=== PATIENT | female | born 1995 | race Caucasian/White ===

== ENCOUNTER 2016-08-05 09:38 | Emergency (ER) | payer SELFPAY ==
[~2016-08-05] VITALS: Ht 165.1 cm; Wt 56.5 kg
[2016-08-05 09:41] VITALS: BP 127/54; PULSE 74; RESP 15; TEMP 98.2; O2SAT 100
--- NOTE | 2016-08-05 09:49 | PD ---
HPI . patient thinks she is going to catch pink eye Chief Complaint: Eye Problems/Injury Time Seen by Provider: 09:49 Travel History International Travel<30 days: No Contact w/Intl Traveler<30days: No Traveled to known affect area: No History of Present Illness HPI 21-year-old female here to tell me that she thinks she is going to catch pinkeye. Her roommate is being seen and has pinkeye and patient would like to be treated prophylactically. She has no signs or symptoms. She denies any visual changes, drainage or eye redness. PFSH Past Medical History ?: Not Social History Alcohol Use: Yes Tobacco Use: Yes Allergies-Medications (Allergen,Severity, Reaction): Coded Allergies: No Known Allergies (Unverified , 08/05/16) Review of Systems General / Constitutional: No: Fever Eyes: No: Redness, Visual changes HENT: No: Headaches Cardiovascular: No: Chest Pain or Discomfort Respiratory: No: Shortness of Breath Gastrointestinal: No: Abdominal Pain Genitourinary: No: Dysuria Musculoskeletal: No: Pain Skin: No Rash Neurologic: No: Weakness Psychiatric: No: Depression Endocrine: No: Polydipsia Hematologic/Lymphatic: No: Easy Bruising Physical Exam Narrative GENERAL: AAO x 3, no acute distress, Well-nourished, well-developed patient. SKIN: Warm and dry. No visible rashes or bruising. HEAD: Normocephalic and atraumatic. EYES: No scleral icterus. No injection or drainage. EOM intact, PERRLA, normal eye exam ENT: No nasal drainage noted. Mucous membranes pink. Airway patent. NECK: Supple, trachea midline. No JVD. CARDIOVASCULAR: Regular rate and rhythm without murmurs, gallops, or rubs. RESPIRATORY: Breath sounds equal bilaterally. No accessory muscle use. No rhonchi or rales. GASTROINTESTINAL: Visual inspection normal. EXTREMITIES: No cyanosis or edema. BACK: Nontender without obvious deformity. No CVA tenderness. PSYCH: AAO x 3, normal affect. Data Data Last Documented VS Vital Signs Date Time Temp Pulse Resp B/P Pulse Ox O2 Delivery O2 Flow Rate FiO2 08/05/16 09:41 98.2 74 15 127/54 100 MDM Medical Decision Making Medical Screen Exam Complete: Yes Emergency Medical Condition: No Medical Record Reviewed: Yes Differential Diagnosis medical clearance, wellness exam, less likely conjunctivitis Narrative Course 21-year-old female here to tell me that she thinks she is going to catch pinkeye. Her roommate is being seen and has pinkeye and patient would like to be treated prophylactically. She has no signs or symptoms. She denies any visual changes, drainage or eye redness. A medical screening exam was performed: No abnormal findings on examination. At the time of evaluation the presenting medical condition was determined not to be of an emergent nature. The patient was given the option of receiving additional care, but declined. Patient was given options for additional community resources from which to obtain care. The Patient Has Been advised to seek medical attention for their presenting complaint. The patient has been advised to return to the ER at any time if an emergent condition develops. Diagnosis Primary Impression: Encounter for medical screening examination Condition: Stable Yareli Esquivel August 05, 2016 09:49
== END 2016-08-05 10:09 | disposition left against medical advice (07) ==
LOC: NEPK 09:38
DX: H57.9 Unspecified disorder of eye and adnexa (principal)
CPT/HCPCS: 99281